=== PATIENT | male | born 1970 | race Caucasian/White ===

== ENCOUNTER 2021-04-13 05:29 | Emergency (ER) | payer OTHER ==
[~2021-04-13] VITALS: Ht 180.3 cm; Wt 115.7 kg
[~2021-04-13 05:29] MED LIST: ASA81BEC PO; CARVEDILOL; CARVEDILOL25 MG PO; EFFEXOR 5050 MG/1 T1 PO; FLOMAX0.4 MG PO; FUROSEMIDE; FUROSEMIDE 20 M20 MG PO; IBUPROFEN 800800 MG PO; INDOCIN SR75 MG PO; INDOMETHACIN 5050 M1 PO; LIPITOR10 MG PO; LISINOPRIL; LISINOPRIL2.5 MG PO; NORCO 5-325 TA1 EAC1 PO; PAXIL; PERCOCET 5-3251 EACH PO; VENLAFAXINE HCL25 MG PO
[2021-04-13] MEDS ORDERED: HYDROCODON-ACE1 EAC7 PO (06:39)
[2021-04-13] MEDS ORDERED: NAPROSYN500 MG PO (06:39)
[2021-04-13 07:02] VITALS: BP 128/74
== END 2021-04-13 07:09 | disposition home or self-care (01) ==
LOC: ER 05:29
DX: M25.562 Pain in left knee (principal); M25.462 Effusion, left knee; I50.9 Heart failure, unspecified; Z79.82 Long term (current) use of aspirin; Z79.899 Other long term (current) drug therapy